=== PATIENT | male | born 1995 | race Caucasian/White ===

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

== ENCOUNTER 2025-10-26 18:05 | Inpatient (IN) | payer SELFPAY ==
[2025-10-26] MEDS ORDERED: MORPHINE 4 MG/ML 1 ML VIAL As Ordered ONE (18:30)
[2025-10-26] MEDS ORDERED: ONDANSETRON 4MG/2ML VIAL As Ordered ONE (18:30)
[2025-10-26] MEDS: ONDANSETRON 4MG/2ML VIAL IV ONE (18:51)
[2025-10-26] MEDS: MORPHINE 4 MG/ML 1 ML VIAL IV ONE (18:51)
[2025-10-26 19:15] LABS: BASO # 0.0 10^3/uL (0.0-0.2); BASO % 0.3 % (0.0-1.0); EOS # 0.1 10^3/uL (0.0-0.5); EOS % 0.8 % (0.0-3.0); LYMPH # 2.4 10^3/uL (1.5-5.0); LYMPH % 19.3 % (24.0-44.0); MONO # 0.7 10^3/uL (0.0-0.8); MONO % 5.7 % (2.0-8.0); NEUTROPHILS # 9.3 10^3/uL (1.5-8.5); NEUTROPHILS % 73.1 % (36.0-66.0); PLATELET COUNT, AUTOMATED 206 10^3/uL (150-450)
[2025-10-26 19:19] LABS: ALT/SGPT 26 U/L (7.0-40); AST/SGOT 26 U/L (<34); CALCIUM LEVEL 9.0 MG/DL (8.5-10.1); CARBON DIOXIDE LEVEL 29 MMOL/L (20-31); CHLORIDE LEVEL 107 MMOL/L (98-107); CREATININE FOR GFR 0.72 MG/DL (0.70-1.30); GLOMERULAR FILTRATION RATE > 90.0 (>60); POTASSIUM SERUM 4.2 MMOL/L (3.5-5.1); SODIUM LEVEL 142 MMOL/L (136-145)
[2025-10-26 19:39] LABS: INR 0.95
[2025-10-26] MEDS: MORPHINE 2 MG/ML 1 ML VIAL IV PRN (19:55)
[2025-10-26] MEDS: NS (Normal Saline) 0.9% 1,000 ML IV SCH ×2 (19:58→20:23)
[2025-10-26] MEDS ORDERED: MOM 30 ML SUSPENSION UDC PO PRN (20:05)
[2025-10-26] MEDS ORDERED: ONDANSETRON 4MG/2ML VIAL IV PRN (20:05)
[2025-10-26] MEDS ORDERED: HOME MED LIST COMPLETE! XX SCH (20:10)
[2025-10-26] MEDS: ENOXAPARIN 40 MG/0.4 ML SYRINGE (J1650 PER 10MG) SC SCH (20:23)
[2025-10-26 21:44] VITALS: BP 133/73; TEMP 98.7; O2SAT 96
[2025-10-26 23:52] VITALS: BP 132/68; TEMP 98.9; O2SAT 97
[2025-10-27] VITALS (11 sets, daily range): BP systolic 119–139; BP diastolic 67–91; TEMP 97.9–99.8; O2SAT 92–99
[2025-10-27] MEDS: NICOTINE 21 MG/24 HR 1 EA TRANSDERMAL TD SCH (00:10)
[2025-10-27] MEDS: MORPHINE 2 MG/ML 1 ML VIAL IV PRN (00:11)
[2025-10-27 06:44] LABS: PLATELET COUNT, AUTOMATED 173 10^3/uL (150-450)
[2025-10-27 07:18] LABS: ALT/SGPT 22 U/L (7.0-40); AST/SGOT 17 U/L (<34); CALCIUM LEVEL 7.9 MG/DL (8.5-10.1); CARBON DIOXIDE LEVEL 26 MMOL/L (20-31); CHLORIDE LEVEL 110 MMOL/L (98-107); CREATININE FOR GFR 0.65 MG/DL (0.70-1.30); GLOMERULAR FILTRATION RATE > 90.0 (>60); MAGNESIUM LEVEL 1.9 MG/DL (1.8-2.4); POTASSIUM SERUM 3.8 MMOL/L (3.5-5.1); SODIUM LEVEL 143 MMOL/L (136-145)
[2025-10-27] MEDS ORDERED: dexAMETHasone 4 MG/ML 1 ML VIAL As Ordered ONE (16:40)
[2025-10-27] MEDS ORDERED: MIDAZOLAM INJ 2 MG/2 ML VIAL As Ordered ONE (16:40)
[2025-10-27] MEDS ORDERED: LIDOCAINE 2% 100 MG/5 ML SDV (FOR ANES.) As Ordered ONE (16:40)
[2025-10-27] MEDS ORDERED: ACETAMINOPHEN 1000MG/100ML IV BAG As Ordered ONE (17:14)
[2025-10-27] MEDS ORDERED: HYDROmorphone HCL 2 MG/ML 1 ML VIAL As Ordered ONE (17:54)
[2025-10-27] MEDS ORDERED: KETOROLAC 30 MG/ML 1 ML VIAL As Ordered ONE (18:16)
[2025-10-27] MEDS ORDERED: ONDANSETRON 4MG/2ML VIAL IV PRN (18:20)
[2025-10-27] MEDS: LR 1,000 ML IV SCH (18:20)
[2025-10-27] MEDS: HYDROMORPHONE HCL 0.5 MG/0.5 ML SYRINGE IV PRN (19:05)
[2025-10-28] VITALS: BP 144/85; TEMP 97.5; O2SAT 96
[2025-10-28] MEDS: ceFAZolin SODIUM 2 GM in DEXTROSE 5% (D5W) ADV/MINI-BAG 50 ML IV SCH (01:55)
[2025-10-28 04:29] VITALS: BP 136/82; TEMP 97.5; O2SAT 99
[2025-10-28] MEDS: ACETAMINOPHEN 325 MG TAB PO PRN (04:33)
[2025-10-28 07:24] LABS: PLATELET COUNT, AUTOMATED 148 10^3/uL (150-450)
[2025-10-28 07:41] LABS: CALCIUM LEVEL 7.6 MG/DL (8.5-10.1); CARBON DIOXIDE LEVEL 25 MMOL/L (20-31); CHLORIDE LEVEL 108 MMOL/L (98-107); CREATININE FOR GFR 0.99 MG/DL (0.70-1.30); GLOMERULAR FILTRATION RATE > 90.0 (>60); POTASSIUM SERUM 3.9 MMOL/L (3.5-5.1); SODIUM LEVEL 141 MMOL/L (136-145)
[2025-10-28 08:37] VITALS: BP 126/69; TEMP 97.8; O2SAT 97
[2025-10-28 12:16] VITALS: BP 141/78; TEMP 97.5; O2SAT 99
[2025-10-28] MEDS: ASPIRIN 325 MG TAB PO SCH (14:08)
[2025-10-28 15:57] VITALS: BP 133/85; TEMP 97.9; O2SAT 98
[2025-10-28 20:03] VITALS: BP 125/59; TEMP 97.4; O2SAT 98
[2025-10-29 00:30] VITALS: BP 135/88; TEMP 98.7; O2SAT 97
[2025-10-29 04:55] VITALS: BP 134/74; TEMP 98.4; O2SAT 99
[2025-10-29 07:22] LABS: PLATELET COUNT, AUTOMATED 144 10^3/uL (150-450)
[2025-10-29 07:43] LABS: CALCIUM LEVEL 8.1 MG/DL (8.5-10.1); CARBON DIOXIDE LEVEL 27 MMOL/L (20-31); CHLORIDE LEVEL 107 MMOL/L (98-107); CREATININE FOR GFR 0.66 MG/DL (0.70-1.30); GLOMERULAR FILTRATION RATE > 90.0 (>60); POTASSIUM SERUM 3.8 MMOL/L (3.5-5.1); SODIUM LEVEL 141 MMOL/L (136-145)
[2025-10-29 08:00] VITALS: BP 136/86; TEMP 98.4; O2SAT 99
[2025-10-29 12:00] VITALS: BP 138/80; TEMP 98.5; O2SAT 99
[2025-10-29] MEDS ORDERED: OXYC-517 PO (13:58)
[2025-10-29] MEDS ORDERED: ASPI-1 PO (13:58)
== END 2025-10-29 15:05 | disposition home or self-care (01) | DRG 308 ==
LOC: EDBD 18:05 → M ED 19:15 → M ED INP 20:03 → M MSPAV 21:28
PROVIDERS: ADMIT Internal Medicine; ATTEND Student in an Organized Health Care Education/Training Program
PROC: 0QS704Z Reposition Left Upper Femur with Internal Fixation Device, Open Approach (ICD-10-PCS; principal; 2025-10-27 13:00)
DX: S72.142A Displaced intertrochanteric fracture of left femur, initial encounter for closed fracture (principal); V43.52XA Car driver injured in collision with other type car in traffic accident, initial encounter